=== PATIENT | female | born 1985 ===

== ENCOUNTER → 2023-07-03 | Outpatient (CLI) | payer OTHER ==
[2023-07-06 00:07] LABS: APTIMA MEDIA TYPE Urine; C. TRACHOMATIS BY TMA Negative (Negative); N. GONORRHOEAE BY TMA Negative (Negative); SPECIMEN SOURCE Urine
== END ==
LOC: LAB SHORT 12:30 → LAB 12:30
PROVIDERS: Obstetrics & Gynecology
DX: Z11.3 Encounter for screening for infections with a predominantly sexual mode of transmission (principal)
CPT/HCPCS: 87491; 87591

== ENCOUNTER 2024-01-01 05:59 | Inpatient (IN) | payer OTHER ==
[~2024-01-01] VITALS: Ht 165.1 cm; Wt 106.4 kg
[2024-01-01] VITALS (33 sets, daily range): BP systolic 52–137; BP diastolic 33–102
[~2024-01-01 05:59] MED LIST: CeFAZolin Sodium 2,000 MG in NS 100 ML IV SCH; Citric Acid/Sodium Citrate 30 ML BTL PO SCH; Lactated Ringer's 1,000 ML IV SCH; Metoclopramide HCl 5MG / ML 2ML Vial IV SCH
[2024-01-01 06:36] LABS: BASOPHILS ABSOLUTE AUTO 0.02 K/mm3 (0.00-0.23); BASOPHILS PERCENT AUTO 0 % (0-2); EOSINOPHILS ABSOLUTE AUTO 0.16 K/mm3 (0.00-0.68); EOSINOPHILS PERCENT AUTO 2 % (0-6); Hematocrit 37.9 % (33.0-51.0); Hemoglobin 13.4 g/dL (11.5-16.0); IMMATURE GRAN ABSOLUTE AUTO 0.03 K/mm3 (0.00-0.10); IMMATURE GRAN PERCENT AUTO 0 % (0-1); LYMPHOCYTES ABSOLUTE AUTO 2.27 K/mm3 (0.84-5.20); LYMPHOCYTES PERCENT AUTO 25 % (21-46); MONOCYTES ABSOLUTE AUTO 0.88 K/mm3 (0.16-1.47); MONOCYTES PERCENT AUTO 10 % (4-13); Mean Corpuscular HGB 31.4 pg (26.0-34.0); Mean Corpuscular HGB Conc 35.4 g/dL (31.5-36.5); Mean Corpuscular Volume 89 fL (80-100); Mean Platelet Volume 11.7 fL (9.1-12.4); NEUTROPHILS ABSOLUTE AUTO 5.79 K/mm3 (1.96-9.15); NEUTROPHILS PERCENT AUTO 63 % (41-73); Platelet Count 160 K/mm3 (150-400); RDW Coefficient Variation 13.1 % (11.7-14.2); Red Blood Cell Count 4.27 M/mm3 (3.80-5.20); White Blood Cell Count 9.15 K/mm3 (4.00-11.30)
[2024-01-01] MEDS ORDERED: OMEP20ER PO (06:43)
[2024-01-01] MEDS ORDERED: ESCI20 (06:43)
[2024-01-01] MEDS ORDERED: PRENATAL TABLE1 EAC2 PO (06:43)
[2024-01-01] MEDS ORDERED: ZYRTEC10 M2 PO (06:44)
[2024-01-01] MEDS ORDERED: Famotidine 10 MG/ML 2ML Vial IV ONE (07:05)
[2024-01-01] MEDS ORDERED: Oxytocin 10 Unit / ML Vial ONE ×3 (07:16→08:16)
[2024-01-01] MEDS ORDERED: HYDROmorphone HCl/Pf 1MG SYR IV PRN ×2 (07:30→09:35)
[2024-01-01] MEDS ORDERED: FentaNYL Citrate 50 MCG/ML 2 ML Injection IV PRN ×3 (07:35)
[2024-01-01] MEDS ORDERED: Ondansetron HCl 2 MG / ML 2ML Vial IV PRN ×2 (07:35→09:30)
[2024-01-01] MEDS ORDERED: Albuterol 2.5 MG/3 ML VIAL INH PRN (07:35)
[2024-01-01] MEDS ORDERED: ePHEDrine Sulfate 50 MG/ML 1ML Injection IV PRN (07:35)
[2024-01-01] MEDS ORDERED: Phenylephrine HCl 100 MCG/ML-NS 10MLSYR (1MG/10ML) ONE ×2 (07:49→11:39)
[2024-01-01] MEDS ORDERED: Ondansetron HCl 2 MG / ML 2ML Vial ONE (07:52)
--- NOTE | 2024-01-01 08:26 | NUR ---
01/01/24 0826 Lupe Reese MALE DELIVERED AT 0809 VIA REPEAT SECTION. VIABLE. WENT TO NURSERY FOR CPAP.
[2024-01-01] MEDS ORDERED: Methylergonovine Maleate 0.2MG / ML 1ML Amp ONE (09:05)
[2024-01-01] MEDS ORDERED: OxyCODONE HCL 5 MG TAB PO PRN ×3 (09:25→22:25)
[2024-01-01] MEDS ORDERED: Carboprost Tromethamine 250 MCG/ML 1ML Amp IM PRN (09:25)
[2024-01-01] MEDS ORDERED: Rho(D) Immune Globulin 300 MCG / SYR IM SCH (09:25)
[2024-01-01] MEDS ORDERED: Simethicone 80 MG Chew PO PRN (09:25)
[2024-01-01] MEDS ORDERED: Tranexamic Acid 100 ML IV ONE ×2 (09:29→10:30)
[2024-01-01] MEDS ORDERED: Misoprostol 200 MCG Tab PR PRN (09:30)
[2024-01-01] MEDS ORDERED: Methylergonovine Maleate 0.2MG / ML 1ML Amp IM PRN (09:30)
[2024-01-01] MEDS ORDERED: DiphenhydrAMINE HCL 25 MG Cap PO PRN (09:30)
[2024-01-01] MEDS ORDERED: Metoclopramide HCl 10 MG Tab PO PRN (09:30)
[2024-01-01] MEDS ORDERED: Lanolin Cream TOP PRN (09:30)
[2024-01-01] MEDS ORDERED: Promethazine HCl 25 MG Tab PO PRN (09:35)
[2024-01-01] MEDS ORDERED: OXYTOCIN/RINGER'S LACTATE 500 ML IV SCH ×2 (09:35)
[2024-01-01] MEDS ORDERED: Dexamethasone Sod Phos 10 MG/ML 1ML VIAL ONE ×2 (09:36→11:29)
[2024-01-01] MEDS ORDERED: Magnesium Hydroxide Conc 10 ML UDC PO PRN (09:40)
[2024-01-01] MEDS ORDERED: Lactated Ringer's 1,000 ML IV SCH (09:40)
[2024-01-01] MEDS ORDERED: Tranexamic Acid 100 ML IV SCH (09:45)
[2024-01-01] MEDS ORDERED: Ketorolac Tromethamine 30mg Vial IV SCH (10:00)
[2024-01-01] MEDS ORDERED: Morphine Sulfate 4 MG/1 ML Injection ONE (10:01)
[2024-01-01] MEDS ORDERED: Morphine Sulfate 4 MG/1 ML Injection IV PRN (10:05)
[2024-01-01 10:34] LABS: BASOPHILS ABSOLUTE AUTO 0.02 K/mm3 (0.00-0.23); BASOPHILS PERCENT AUTO 0 % (0-2); EOSINOPHILS ABSOLUTE AUTO 0.12 K/mm3 (0.00-0.68); EOSINOPHILS PERCENT AUTO 1 % (0-6); Hemoglobin 10.1 g/dL (11.5-16.0); IMMATURE GRAN ABSOLUTE AUTO 0.06 K/mm3 (0.00-0.10); IMMATURE GRAN PERCENT AUTO 1 % (0-1); LYMPHOCYTES ABSOLUTE AUTO 2.52 K/mm3 (0.84-5.20); LYMPHOCYTES PERCENT AUTO 21 % (21-46); MONOCYTES ABSOLUTE AUTO 0.77 K/mm3 (0.16-1.47); MONOCYTES PERCENT AUTO 6 % (4-13); Mean Corpuscular HGB 31.9 pg (26.0-34.0); Mean Corpuscular HGB Conc 34.8 g/dL (31.5-36.5); Mean Corpuscular Volume 92 fL (80-100); Mean Platelet Volume 11.9 fL (9.1-12.4); NEUTROPHILS ABSOLUTE AUTO 8.58 K/mm3 (1.96-9.15); NEUTROPHILS PERCENT AUTO 71 % (41-73); Platelet Count 149 K/mm3 (150-400); RDW Coefficient Variation 13.1 % (11.7-14.2); Red Blood Cell Count 3.17 M/mm3 (3.80-5.20); White Blood Cell Count 12.07 K/mm3 (4.00-11.30)
[2024-01-01] MEDS ORDERED: NS 500 ML IV SCH (10:35)
[2024-01-01] MEDS ORDERED: Rocuronium Bromide 10 MG/ML 5ML Injection IV ONE ×2 (11:29→13:04)
[2024-01-01] MEDS ORDERED: Ketamine HCl 100 MG / ML 5ML Vial ONE (11:29)
[2024-01-01] MEDS ORDERED: Lidocaine HCl 2% 20 ML MDV ONE (11:29)
[2024-01-01] MEDS ORDERED: FentaNYL Citrate 50 MCG/ML 2 ML Injection ONE (11:56)
[2024-01-01] MEDS ORDERED: Acetaminophen 500 MG Tab PO SCH (12:00)
[2024-01-01 12:02] LABS: BASOPHILS ABSOLUTE AUTO 0.04 K/mm3 (0.00-0.23); BASOPHILS PERCENT AUTO 0 % (0-2); EOSINOPHILS ABSOLUTE AUTO 0.02 K/mm3 (0.00-0.68); EOSINOPHILS PERCENT AUTO 0 % (0-6); IMMATURE GRAN ABSOLUTE AUTO 0.13 K/mm3 (0.00-0.10); IMMATURE GRAN PERCENT AUTO 1 % (0-1); LYMPHOCYTES ABSOLUTE AUTO 1.74 K/mm3 (0.84-5.20); LYMPHOCYTES PERCENT AUTO 8 % (21-46); MONOCYTES ABSOLUTE AUTO 1.14 K/mm3 (0.16-1.47); MONOCYTES PERCENT AUTO 5 % (4-13); Mean Corpuscular HGB 31.3 pg (26.0-34.0); Mean Corpuscular HGB Conc 34.5 g/dL (31.5-36.5); Mean Corpuscular Volume 91 fL (80-100); Mean Platelet Volume 11.9 fL (9.1-12.4); NEUTROPHILS ABSOLUTE AUTO 19.92 K/mm3 (1.96-9.15); NEUTROPHILS PERCENT AUTO 87 % (41-73); Platelet Count 133 K/mm3 (150-400); RDW Coefficient Variation 13.2 % (11.7-14.2); RDW Standard Deviation 43.7 fL (35.1-46.3); White Blood Cell Count 22.99 K/mm3 (4.00-11.30)
[2024-01-01 12:04] LABS: International Normalized Ratio 0.94; Prothrombin Time Results 10.1 Sec (9.7-11.5)
[2024-01-01 12:08] LABS: International Normalized Ratio 0.96; Prothrombin Time Results 10.3 Sec (9.7-11.5)
[2024-01-01] MEDS ORDERED: Midazolam HCl 1MG / ML 2ML Vial ONE (12:14)
--- NOTE | 2024-01-01 12:30 | NUR ---
01/01/24 1230 Sharon Edwards PATIENT HAD VELASCO CATHETER PLACED PRIOR TO ENTERING OR.
[2024-01-01 12:53] LABS: PO2 Arterial 393 mmHg (80-100); pH Blood Arterial 7.23 (7.35-7.45)
--- NOTE | 2024-01-01 13:18 | NUR ---
[facility] PACU [id number] PT INTO PACU FROM [facility] OR AT 0920 DR. NUÑEZ ANESTHESIOLO AND DR ROCA AT BEDSIDE. PT'S BP'S LOW WITH AUTOMATIC BP MACHINE, MANUAL BP TAKEN. SEE VITALS SIGNS. PT ALERT AND ORIENTED X3, VERY SHAKY AND DIFFICULT TO GET INITIAL BP'S. BP SLIGHTLY HIGHER WITH MANUAL BP CHECK. PT HAD A LARGE AMOUNT OF BLOOD ON THE OR BED PRIOR TO COMING TO THE PACU. QBL WAS UNKNOWN AT THIS TIME THE OR TECH WAS WORKIGN ON WEIGHING, PROVIDER EBL AT THIS TIME WAS 1100 PRIOR TO COMING TO THE PACU. METHERGINE WAS GIVEN IN THE OR PRIOR TO COMING TO THE PACU AND DR. NUÑEZ HAD #2 BAG OF PITOCIN INFUSING. 0925: LARGE AMOUNT OF BLOOD WITH FIRST FUNDAL RUB IN PACU. DR. ROCA STILL AT BEDISE AND AWARE. ORDER FOR TXA RECEIVED. 0930: TXA GIVEN. DR. ROCA LEFT PACU BUT WILL REMAIN ON UNIT 0940: LARGE AMOUNT OF BLOOD CLOTS WITH FUNDAL RUB. DR. ROCA ASKED TO COME BACK INTO PACU TO EVALUATE. 0945: 800MG RECTAL CYTOTEC GIVEN. DR. ROCA REMAINING AT BEDISE. PT HYPTOENSIVE. PITOCIN/LR BOLUS GOING. 1000: UPDATED FROM ROUTE JUMPER THAT OR QBL WAS 2660. THERE'S BEEN AN ADDITION 904 CC BLOOD LOSS WHILE IN PACU. DR. ROCA ORDING LABS. WILL PLACE 2ND IV. NOTIFYING BLOOD BANK TO ENSURE BLOOS IS READY. 1010: PT REPORTING ABDOMINAL PAIN. MANUAL BP TAKEN BY GURMEET MALIK. BP 110/60. ORDER FOR 2 MG MORPHINE AND PT RECEIVED. 1011: NEW BAG OF LR HUNG. 1015: SECOND IV PLACED AFTER MULTIPLE ATTEMPS. 20 GAUGE IN RIGHT AC. 1023: SECOND DOSE OF IM METHERGINE GIVEN 1030: SECOND DOSE OF TXA GIVEN. DR. ROCA STILL AT BEDSIDE. 1035: DR. ROCA ORDERING TO TRANSFUSE BLOOD 1050: RAPID RESPONSE CALLED. 1055: RAPID RESPONSE TEAM IN. PLAN FOR RAPID TRANSFUSION OF BLOOD. DR. PACHECO IN PACU CONSULTING WITH DR. ROCA. 1058: 1ST UNIT OF BLOOD STARTED. DR. NUÑEZ INTO PACU. 1103: RAPID TRANSFUSER STARTED ON 2ND UNIT OF BLOOD. 1108: MASSIVE TRANSFUSION PROTOCAL INITIATED BY REZA HIDALGO RN. DECISION TO RETURN TO OR BY DR. ROCA AND DR. PACHECO. PROVIDERS DISCUSSING PLAN OF CARE WITH PATIENT AND . 1110: RAPID TRANSFUSION OF ONE UNIT OF BLOOD COMPLETED. 1114: OR CONSENT SIGNED. PLAN TO DO HYSTERECTOMY. 1115: FIRST UNIT OF BLOOD MOVED OVER TO THE RAPID TRANSFUSER. 1125: PATIENT TRANSFERRED TO OR FOR STAT HYSTERECTOMY. TOTAL OF 824 ML OF BLOOD TRANSUFED PRIOR TO TRASNFER.
[2024-01-01] MEDS ORDERED: Glycopyrrolate 0.2 MG/ML 5ML VIAL ONE (13:28)
[2024-01-01] MEDS ORDERED: Neostigmine Methylsulfate 5MG/5ML SYR ONE (13:28)
[2024-01-01] MEDS ORDERED: Labetalol HCL 5 MG/ML 4ML Injection (Single Dose) ONE (13:29)
[2024-01-01] MEDS ORDERED: Bupivacaine 0.5% HCl 5 MG/ML 30MLVIAL ONE (14:09)
[2024-01-01 15:00] LABS: BASOPHILS ABSOLUTE AUTO 0.03 K/mm3 (0.00-0.23); BASOPHILS PERCENT AUTO 0 % (0-2); EOSINOPHILS ABSOLUTE AUTO 0.01 K/mm3 (0.00-0.68); EOSINOPHILS PERCENT AUTO 0 % (0-6); Hematocrit 27.8 % (33.0-51.0); Hemoglobin 10.1 g/dL (11.5-16.0); IMMATURE GRAN ABSOLUTE AUTO 0.11 K/mm3 (0.00-0.10); IMMATURE GRAN PERCENT AUTO 1 % (0-1); LYMPHOCYTES ABSOLUTE AUTO 0.79 K/mm3 (0.84-5.20); LYMPHOCYTES PERCENT AUTO 4 % (21-46); MONOCYTES ABSOLUTE AUTO 0.73 K/mm3 (0.16-1.47); MONOCYTES PERCENT AUTO 4 % (4-13); Mean Corpuscular HGB 31.7 pg (26.0-34.0); Mean Corpuscular HGB Conc 36.3 g/dL (31.5-36.5); Mean Corpuscular Volume 87 fL (80-100); Mean Platelet Volume 11.7 fL (9.1-12.4); NEUTROPHILS ABSOLUTE AUTO 18.74 K/mm3 (1.96-9.15); NEUTROPHILS PERCENT AUTO 92 % (41-73); Platelet Count 121 K/mm3 (150-400); RDW Coefficient Variation 13.1 % (11.7-14.2); Red Blood Cell Count 3.19 M/mm3 (3.80-5.20); White Blood Cell Count 20.41 K/mm3 (4.00-11.30)
[2024-01-01 15:27] LABS: Albumin/Globulin Ratio 0.7 (0.8-1.8); Bilirubin, Total 0.5 mg/dL (0.1-1.0); Bun/Creatinine Ratio 19.7 (12.0-20.0); Calcium, Blood 8.4 mg/dL (8.5-10.1); Creatinine, Blood 0.61 mg/dL (0.40-1.00); Globulin, Blood 2.7 g/dL (2.2-4.0); Magnesium, Blood 1.1 mg/dL (1.6-2.4); Phosphorus, Blood 3.6 mg/dL (2.5-4.9); Potassium, Blood 5.4 mmol/L (3.5-5.5); Total Protein, Blood 4.7 g/dL (6.4-8.2)
[2024-01-01] MEDS ORDERED: Magnesium Sulf 2 GM/Water 50ML 50 ML IV SCH (15:45)
[2024-01-01] MEDS ORDERED: Ibuprofen 400 MG Tab PO SCH (16:00)
[2024-01-01] MEDS ORDERED: Sodium Bicarb 8.4% 50 mEq Syringe IV ONE (16:33)
[2024-01-01] MEDS ORDERED: Calcium Chloride 10% 10 ML SYR IV ONE (16:33)
[2024-01-01] MEDS ORDERED: Misoprostol 200 MCG Tab PO ONE (17:03)
[2024-01-01] MEDS ORDERED: Ketorolac Tromethamine 15mg Vial IV PRN (17:45)
--- NOTE | 2024-01-01 18:34 | NUR ---
Shift summary. Pt arrived to icu from OR/PACU with Dr. Fernández and OR team. Pt arousable and following commands, vs stable at time of arrival. R/radial arterial BP line in place, dressing applied. After discussion with Dr. Schneider and icu physician, labs obtained, pain medication given and replacement Mag started. Pt remained stable throughout rest of shift, at approximately 1615 art line removed, site c/d/i w/out bleeding, occlusive dressing applied. Cardoso catheter removed, purwick put in place. Plan is for repeat evening labs after mag replacement and possible return to [facility]. See chart for further details.
[2024-01-01] MEDS ORDERED: CeFAZolin Sodium 1,000 MG in NS 50 ML IV SCH (20:00)
[2024-01-01 20:52] LABS: BASOPHILS ABSOLUTE AUTO 0.01 K/mm3 (0.00-0.23); BASOPHILS PERCENT AUTO 0 % (0-2); EOSINOPHILS PERCENT AUTO 0 % (0-6); Hematocrit 21.7 % (33.0-51.0); Hemoglobin 7.9 g/dL (11.5-16.0); IMMATURE GRAN ABSOLUTE AUTO 0.05 K/mm3 (0.00-0.10); IMMATURE GRAN PERCENT AUTO 0 % (0-1); LYMPHOCYTES ABSOLUTE AUTO 1.54 K/mm3 (0.84-5.20); LYMPHOCYTES PERCENT AUTO 10 % (21-46); MONOCYTES ABSOLUTE AUTO 0.88 K/mm3 (0.16-1.47); MONOCYTES PERCENT AUTO 6 % (4-13); Mean Corpuscular HGB 31.6 pg (26.0-34.0); Mean Corpuscular HGB Conc 36.4 g/dL (31.5-36.5); Mean Corpuscular Volume 87 fL (80-100); NEUTROPHILS ABSOLUTE AUTO 13.29 K/mm3 (1.96-9.15); NEUTROPHILS PERCENT AUTO 84 % (41-73); Platelet Count 102 K/mm3 (150-400); RDW Coefficient Variation 13.7 % (11.7-14.2); RDW Standard Deviation 42.9 fL (35.1-46.3); White Blood Cell Count 15.77 K/mm3 (4.00-11.30)
[2024-01-01 20:53] LABS: Base Excess Venous -3.2 mmol/L; Bicarbonate Venous 21.9 mmol/L (24.0-30.0); PCO2 Venous 36.7 mmHg (38-42); pH Blood Venous 7.38 (7.34-7.37)
[2024-01-01 21:21] LABS: International Normalized Ratio 0.92; Prothrombin Time Results 9.9 Sec (9.7-11.5)
[2024-01-01 21:22] LABS: Albumin, Blood 1.7 g/dL (3.4-5.0); Albumin/Globulin Ratio 0.7 (0.8-1.8); Bilirubin, Total 0.3 mg/dL (0.1-1.0); Bun/Creatinine Ratio 17.8 (12.0-20.0); Calcium, Blood 7.3 mg/dL (8.5-10.1); Creatinine, Blood 0.67 mg/dL (0.40-1.00); Globulin, Blood 2.5 g/dL (2.2-4.0); Potassium, Blood 3.9 mmol/L (3.5-5.5); Total Protein, Blood 4.2 g/dL (6.4-8.2)
--- NOTE | 2024-01-01 22:27 | NUR ---
ASSUMPTION OF CARE: RECEIVED REPORT FROM VERONICA LEVI AT 1900. PT ALERT AND ORIENTED. ANSWERS QUESTIONS AND FOLLOWS COMMANDS. PT C/O PAIN LOWER ABDOMEN, MEDICATED PER EMAR WITH RELIEF. ABDOMINAL BINDER APPLIED FOR COMFORT POST HYSTERECTOMY/. INCISION DRESSING C/D/I, SHOWS NO SIGNS OF BLEEDING/OOZING. PT ABLE TO STAND AND TRANSFER TO THE TOILET WITH MINIMAL ASSIST. PT TACHYCARDIC WHILE FIRST STANDING HR TOUCHED THE 150'S, PT WAS ASYMPTOMATIC DURING EPISODE, AND DID NOT SUSTAIN. SUPPLY CHAIN DIRECTOR IN PLACE, SR/ST HR RANGING 90'S-120'S WHILE AT REST. NO C/O CHEST PAIN/PRESSURE. SBP 130'S. DENIES SOB. PT ON RA WITH SPO2 HIGH 90'S. PT SALINE LOCKED CURRENTLY, PIVS INTACT. PT HAS MINIMAL VAGINAL BLEEDING. UNABLE TO VOID YET, BLADDER SCAN SHOWED 2ML URINE. NO BM YET. PT HAS MODERATE AMOUNT OF EDEMA NOTED T/O. BED LOW AND LOCKED. AWAITING TRANSFER TO [facility] ROOM 130.
--- NOTE | 2024-01-01 23:06 | NUR ---
UPDATE: SPOKE WITH DR. MANNING AND DR. PACHECO BOTH IN [place]GR[place]ANCE TO MOVING PT TO [facility]. PT TRANSFERRED TO ROOM 130, REPORT GIVEN TO DANIELLE LEVI. PT TAKEN BY WHEELCHAIR, ALL BELONGINGS SENT WITH PT.
[2024-01-02] VITALS (20 sets, daily range): BP systolic 97–125; BP diastolic 54–73
--- NOTE | 2024-01-02 00:30 | NUR ---
PT'S SPO2 DROPPING INTO THE 80'S WHEN SHE SLEEPS. PT STATES SHE SNORES AND HAS HAD A SLEEP STUDY IN THE PAST. 02 BY GIGI APPLIED AT 2LPM.
--- NOTE | 2024-01-02 01:46 | NUR ---
Dr. Vo notified at 9225 of urinary retention. Orders to bladder scan, if greater than 250mL place shaver. If less than 250mL wait an hour and try to void again. If shaver is placed, order a urine culture. Rhea recieved addisional lab order for AM. RBV
--- NOTE | 2024-01-02 01:50 | NUR ---
At 2345 a bladder scan was completed. Pt wanted to try voiding again before shaver is placed. Pt was successful at voiding 700mL. No shaver is needed at this time.
--- NOTE | 2024-01-02 03:34 | NUR ---
repositioned to r tilt
[2024-01-02 04:31] LABS: BASOPHILS ABSOLUTE AUTO 0.03 K/mm3 (0.00-0.23); BASOPHILS PERCENT AUTO 0 % (0-2); EOSINOPHILS ABSOLUTE AUTO 0.03 K/mm3 (0.00-0.68); EOSINOPHILS PERCENT AUTO 0 % (0-6); Hematocrit 18.6 % (33.0-51.0); Hemoglobin 6.8 g/dL (11.5-16.0); IMMATURE GRAN ABSOLUTE AUTO 0.05 K/mm3 (0.00-0.10); IMMATURE GRAN PERCENT AUTO 0 % (0-1); LYMPHOCYTES ABSOLUTE AUTO 2.12 K/mm3 (0.84-5.20); LYMPHOCYTES PERCENT AUTO 18 % (21-46); MONOCYTES ABSOLUTE AUTO 0.95 K/mm3 (0.16-1.47); MONOCYTES PERCENT AUTO 8 % (4-13); Mean Corpuscular HGB 31.8 pg (26.0-34.0); Mean Corpuscular HGB Conc 36.6 g/dL (31.5-36.5); Mean Corpuscular Volume 87 fL (80-100); Mean Platelet Volume 11.4 fL (9.1-12.4); NEUTROPHILS ABSOLUTE AUTO 8.71 K/mm3 (1.96-9.15); NEUTROPHILS PERCENT AUTO 73 % (41-73); Platelet Count 103 K/mm3 (150-400); RDW Standard Deviation 43.3 fL (35.1-46.3); Red Blood Cell Count 2.14 M/mm3 (3.80-5.20); White Blood Cell Count 11.89 K/mm3 (4.00-11.30)
[2024-01-02 04:48] LABS: International Normalized Ratio 0.91; Prothrombin Time Results 9.8 Sec (9.7-11.5)
[2024-01-02 05:05] LABS: Albumin, Blood 1.7 g/dL (3.4-5.0); Albumin/Globulin Ratio 0.7 (0.8-1.8); Bilirubin, Total 0.2 mg/dL (0.1-1.0); Bun/Creatinine Ratio 18.2 (12.0-20.0); Calcium, Blood 7.8 mg/dL (8.5-10.1); Creatinine, Blood 0.66 mg/dL (0.40-1.00); Globulin, Blood 2.5 g/dL (2.2-4.0); Potassium, Blood 3.9 mmol/L (3.5-5.5); Total Protein, Blood 4.2 g/dL (6.4-8.2)
[2024-01-02] MEDS ORDERED: Omeprazole 20 MG CapCR PO SCH (06:00)
[2024-01-02] MEDS ORDERED: Loratadine 10 MG Tab PO SCH (09:00)
[2024-01-02] MEDS ORDERED: Polyethylene Glycol 3350 17 gm PO SCH ×2 (09:00→21:00)
[2024-01-02] MEDS ORDERED: Prenatal Vit/FE Fumarate/FA 1 Tab PO SCH (09:00)
[2024-01-02] MEDS ORDERED: Citalopram Hydrobromide 20 MG Tab PO SCH (09:00)
[2024-01-02] MEDS ORDERED: Sod Ferric Gluc Complx/Sucrose 125 MG in NS 100 ML IV SCH (09:00)
[2024-01-02] MEDS ORDERED: NS 250 ML IV SCH (09:20)
[2024-01-02] MEDS ORDERED: NS 250 ML IV ONE (09:35)
--- NOTE | 2024-01-02 11:28 | NUR ---
UP TO BATHROOM
--- NOTE | 2024-01-02 14:47 | NUR ---
PT NAPPING, BIOX IS DECREASING DOWN BELOW 90%, PLACED OXYGEN ON AT 2 L/MIN VIA NC WHILE SHE NAPS, WILL LEAVE BIOX ON. PT PULSE STILL RUNS HIGH IN THE 100'S
--- NOTE | 2024-01-02 15:28 | NUR ---
UP AMB IN [place] WITH PUSHING BABY CRIB. REPORTS OTHER KIDS ARE COMING TO SEE HER. PT REPORTS PAIN IS JUST INCISION PAIN, NO OTHER PAIN
--- NOTE | 2024-01-02 17:21 | NUR ---
talked to dr kumar, ok to stop I&O on pt.
--- NOTE | 2024-01-02 17:34 | NUR ---
per dr kumar to do q 4 hr vs and prn
[2024-01-02 18:57] LABS: BASOPHILS ABSOLUTE AUTO 0.01 K/mm3 (0.00-0.23); BASOPHILS PERCENT AUTO 0 % (0-2); EOSINOPHILS ABSOLUTE AUTO 0.07 K/mm3 (0.00-0.68); EOSINOPHILS PERCENT AUTO 1 % (0-6); Hematocrit 20.6 % (33.0-51.0); Hemoglobin 7.3 g/dL (11.5-16.0); IMMATURE GRAN ABSOLUTE AUTO 0.06 K/mm3 (0.00-0.10); IMMATURE GRAN PERCENT AUTO 1 % (0-1); LYMPHOCYTES ABSOLUTE AUTO 1.95 K/mm3 (0.84-5.20); LYMPHOCYTES PERCENT AUTO 19 % (21-46); MONOCYTES ABSOLUTE AUTO 1.01 K/mm3 (0.16-1.47); MONOCYTES PERCENT AUTO 10 % (4-13); Mean Corpuscular HGB 31.2 pg (26.0-34.0); Mean Corpuscular HGB Conc 35.4 g/dL (31.5-36.5); Mean Corpuscular Volume 88 fL (80-100); NEUTROPHILS PERCENT AUTO 70 % (41-73); Platelet Count 118 K/mm3 (150-400); RDW Coefficient Variation 14.6 % (11.7-14.2); RDW Standard Deviation 45.9 fL (35.1-46.3); Red Blood Cell Count 2.34 M/mm3 (3.80-5.20)
[2024-01-03 03:47] VITALS: BP 117/68
[2024-01-03] MEDS ORDERED: Calcium Carbonate 500 MG Tab Chew PO PRN (04:45)
[2024-01-03 07:16] LABS: BASOPHILS ABSOLUTE AUTO 0.03 K/mm3 (0.00-0.23); BASOPHILS PERCENT AUTO 0 % (0-2); EOSINOPHILS ABSOLUTE AUTO 0.24 K/mm3 (0.00-0.68); EOSINOPHILS PERCENT AUTO 2 % (0-6); Hematocrit 19.7 % (33.0-51.0); IMMATURE GRAN ABSOLUTE AUTO 0.12 K/mm3 (0.00-0.10); IMMATURE GRAN PERCENT AUTO 1 % (0-1); LYMPHOCYTES PERCENT AUTO 22 % (21-46); MONOCYTES ABSOLUTE AUTO 0.92 K/mm3 (0.16-1.47); MONOCYTES PERCENT AUTO 9 % (4-13); Mean Corpuscular HGB 31.8 pg (26.0-34.0); Mean Corpuscular HGB Conc 35.5 g/dL (31.5-36.5); Mean Corpuscular Volume 90 fL (80-100); Mean Platelet Volume 10.4 fL (9.1-12.4); NEUTROPHILS ABSOLUTE AUTO 6.77 K/mm3 (1.96-9.15); NEUTROPHILS PERCENT AUTO 65 % (41-73); NRBC ABSOLUTE 0.02 K/mm3 (0.00-0.02); NRBC Auto 0.2 /100 WBC (0.0-0.2); Platelet Count 126 K/mm3 (150-400); RDW Coefficient Variation 14.7 % (11.7-14.2); RDW Standard Deviation 46.9 fL (35.1-46.3); White Blood Cell Count 10.38 K/mm3 (4.00-11.30)
[2024-01-03 07:29] LABS: Calcium, Blood 7.8 mg/dL (8.5-10.1); Creatinine, Blood 0.58 mg/dL (0.40-1.00); Magnesium, Blood 1.8 mg/dL (1.6-2.4); Phosphorus, Blood 2.8 mg/dL (2.5-4.9); Potassium, Blood 3.8 mmol/L (3.5-5.5)
[2024-01-03 08:34] VITALS: BP 139/75
[2024-01-03] MEDS ORDERED: HYDROmorphone HCl 2 MG Tab PO PRN (09:20)
[2024-01-03] MEDS ORDERED: CELEXA40 M9 PO (11:17)
[2024-01-03] MEDS ORDERED: IBUP800 PO (11:19)
[2024-01-03] MEDS ORDERED: ACET500 PO (11:19)
--- NOTE | 2024-01-03 11:36 | NUR ---
PT IS SOUND ASLEEP SNORING, NOT TO WAKE PT FOR VS, RESP RATE IS 18 WITH SNORING, WEARING HER 2 L/MIN OXYGEN THRU NC. FOB AT BEDSIDE NOW, WILL CALL WHEN SHE WAKES UP FOR VS.
[2024-01-03 13:14] VITALS: BP 120/67
[2024-01-03 17:54] VITALS: BP 147/88
[2024-01-03 17:56] VITALS: BP 127/86
== END 2024-01-03 18:10 | disposition home or self-care (01) | DRG 783 ==
LOC: BC 05:59 → ICUE 05:59 → BC 07:30 → ICUE 13:55 → BC 22:51
PROVIDERS: Obstetrics & Gynecology; Student in an Organized Health Care Education/Training Program; ADMIT Obstetrics & Gynecology
PROC: 0UT90ZZ Resection of Uterus, Open Approach (ICD-10-PCS; 2024-01-01)
PROC: 30233K1 Transfusion of Nonautologous Frozen Plasma into Peripheral Vein, Percutaneous Approach (ICD-10-PCS; 2024-01-01)
PROC: 30233N1 Transfusion of Nonautologous Red Blood Cells into Peripheral Vein, Percutaneous Approach (ICD-10-PCS; 2024-01-01)
PROC: 30233R1 Transfusion of Nonautologous Platelets into Peripheral Vein, Percutaneous Approach (ICD-10-PCS; 2024-01-01)
PROC: 4A033R1 Measurement of Arterial Saturation, Peripheral, Percutaneous Approach (ICD-10-PCS; 2024-01-01)
PROC: 10D00Z1 Extraction of Products of Conception, Low, Open Approach (ICD-10-PCS; principal; 2024-01-01 07:30)
PROC: 0UT70ZZ Resection of Bilateral Fallopian Tubes, Open Approach (ICD-10-PCS; 2024-01-01 07:30)
DX: O34.211 Maternal care for low transverse scar from previous cesarean delivery (principal); O99.42 Diseases of the circulatory system complicating childbirth; D62 Acute posthemorrhagic anemia; O72.1 Other immediate postpartum hemorrhage; E87.20 Acidosis, unspecified; O99.344 Other mental disorders complicating childbirth; O99.62 Diseases of the digestive system complicating childbirth; K21.9 Gastro-esophageal reflux disease without esophagitis; F41.8 Other specified anxiety disorders; Z98.890 Other specified postprocedural states; Z30.2 Encounter for sterilization; Z79.899 Other long term (current) drug therapy; Z3A.39 39 weeks gestation of pregnancy; O99.214 Obesity complicating childbirth; O99.284 Endocrine, nutritional and metabolic diseases complicating childbirth; Z37.0 Single live birth
CPT/HCPCS: 36415; 36430; 80048; 80053; 82310; 82803; 83605; 83735; 84100; 85025; 85384; 85610; 85730; 86850; 86900; 86901; 86923; 88302; 88307; 94762; A9270; J0690; J1100; J1170; J1885; J2210; J2250; J2270; J2371; J2405; J2590; J2710; J2765; J2916; J3010; J3475; J7050; J7120; P9016; P9059

== ENCOUNTER 2024-01-05 22:25 | Emergency (ER) | payer OTHER ==
[~2024-01-05] VITALS: Ht 167.6 cm; Wt 90.7 kg
[~2024-01-05 22:25] MED LIST changes: +ACET500 PO; +CELEXA40 M9 PO; -CeFAZolin Sodium 2,000 MG in NS 100 ML IV SCH; -Citric Acid/Sodium Citrate 30 ML BTL PO SCH; +ESCI20; +IBUP800 PO; -Lactated Ringer's 1,000 ML IV SCH; -Metoclopramide HCl 5MG / ML 2ML Vial IV SCH; +OMEP20ER PO; +PRENATAL TABLE1 EAC2 PO; +ZYRTEC10 M2 PO
[2024-01-05 23:39] LABS: Albumin, Blood 2.6 g/dL (3.4-5.0); Albumin/Globulin Ratio 0.8 (0.8-1.8); Bilirubin, Total 0.2 mg/dL (0.1-1.0); Bun/Creatinine Ratio 17.8 (12.0-20.0); Calcium, Blood 8.7 mg/dL (8.5-10.1); Creatinine, Blood 0.56 mg/dL (0.40-1.00); Globulin, Blood 3.4 g/dL (2.2-4.0); Potassium, Blood 3.9 mmol/L (3.5-5.5)
[2024-01-06 00:09] LABS: BASOPHILS ABSOLUTE AUTO 0.03 K/mm3 (0.00-0.23); BASOPHILS PERCENT AUTO 0 % (0-2); EOSINOPHILS ABSOLUTE AUTO 0.26 K/mm3 (0.00-0.68); EOSINOPHILS PERCENT AUTO 3 % (0-6); Hematocrit 21.6 % (33.0-51.0); Hemoglobin 7.7 g/dL (11.5-16.0); IMMATURE GRAN ABSOLUTE AUTO 0.08 K/mm3 (0.00-0.10); IMMATURE GRAN PERCENT AUTO 1 % (0-1); LYMPHOCYTES ABSOLUTE AUTO 2.13 K/mm3 (0.84-5.20); LYMPHOCYTES PERCENT AUTO 20 % (21-46); MONOCYTES ABSOLUTE AUTO 0.78 K/mm3 (0.16-1.47); MONOCYTES PERCENT AUTO 7 % (4-13); Mean Corpuscular HGB 32.4 pg (26.0-34.0); Mean Corpuscular HGB Conc 35.6 g/dL (31.5-36.5); Mean Corpuscular Volume 91 fL (80-100); Mean Platelet Volume 9.2 fL (9.1-12.4); NEUTROPHILS ABSOLUTE AUTO 7.23 K/mm3 (1.96-9.15); NEUTROPHILS PERCENT AUTO 69 % (41-73); NRBC ABSOLUTE 0.02 K/mm3 (0.00-0.02); NRBC Auto 0.2 /100 WBC (0.0-0.2); Platelet Count 218 K/mm3 (150-400); RDW Coefficient Variation 14.8 % (11.7-14.2); RDW Standard Deviation 45.5 fL (35.1-46.3); Red Blood Cell Count 2.38 M/mm3 (3.80-5.20); White Blood Cell Count 10.51 K/mm3 (4.00-11.30)
[2024-01-06] MEDS ORDERED: CEPH500 PO (00:19)
[2024-01-06] MEDS ORDERED: Cephalexin Monohydrate 500 MG Cap PO ONE (00:20)
== END 2024-01-06 00:51 | disposition home or self-care (01) ==
LOC: ER 22:25
PROVIDERS: Physician Assistant
DX: T80.1XXA Vascular complications following infusion, transfusion and therapeutic injection, initial encounter (principal)
CPT/HCPCS: 80053; 85025; 99283; A9270

== ENCOUNTER → 2024-02-12 | Outpatient (CLI) | payer OTHER ==
[~2024-02-12] MED LIST changes: +CEPH500 PO
[2024-02-25 13:49] LABS: HPV HIGH RISK BY TMA Not Detected; HPV SOURCE Vaginal
== END ==
LOC: LAB 19:57 → LAB SHORT 19:57
PROVIDERS: Obstetrics & Gynecology
DX: Z01.419 Encounter for gynecological examination (general) (routine) without abnormal findings (principal)
CPT/HCPCS: 87624; G0123